=== PATIENT | female | born 1990 | race Asian ===

== ENCOUNTER 2016-10-14 05:50 | Inpatient (IN) | payer BC ==
[2016-10-14] MEDS ORDERED: LIDOCAINE 1% (PF) 10 MG/ML (30 ML SDV) SQ PRN (06:25)
[2016-10-14] MEDS ORDERED: METHYLERGONOVINE 0.2 MG/ML 1 ML AMP IM PRN (06:25)
[2016-10-14] MEDS ORDERED: CARBOPROST TROMETHAMINE 250 MCG/ML 1 ML AMP IM PRN (06:25)
[2016-10-14] MEDS ORDERED: OXYTOCIN 10 UNIT/ML 1 ML VIAL IM PRN (06:25)
[2016-10-14] MEDS ORDERED: TERBUTALINE 1 MG/ML VIAL SQ PRN (06:25)
[2016-10-14] MEDS ORDERED: PENICILLIN G POTASSIUM 5,000,000 UNIT in DEXTROSE 5% IN WATER 100 ML IV STA ×2 (06:29)
[2016-10-14 06:46] VITALS: BMI 34.9
[2016-10-14] MEDS: LACTATED RINGERS 1,000 ML IV SCH ×2 (06:47→07:11)
[2016-10-14 07:00] LABS: Anisocytosis Slight; Basophils % (A) 0 %; CH 28.5; CHCM 33.9; Eosinophils # (A) 0.1 k/uL (0-0.7); Eosinophils % (A) 1 %; HCT 36.8 % (34.0-46.0); HDW 2.48; HGB 11.9 gm/dL (11.4-16.0); Luc # (Auto) 0.26; Luc % (Auto) 2; Lymphocytes # (A) 1.9 k/uL (1.0-4.8); Lymphocytes % (A) 16 %; MCH 27.3 pg (25.0-35.0); MCHC 32.3 g/dL (31.0-37.0); MCV 84.4 fL (80.0-100.0); Mean Platelet Volume 6.7; Monocytes # (A) 0.5 k/uL (0-1.0); Monocytes % (A) 5 %; Neutrophils # (A) 8.8 k/uL (1.3-7.7); Neutrophils % (A) 76 %; RBC 4.36 m/uL (3.80-5.40); RDW 16.2 % (11.5-15.5); WBC 11.6 k/uL (3.8-10.6); WBC (Perox) 12.33
--- NOTE | 2016-10-14 07:40 | P.HPOB ---
History of Present Illness H&P Date: 10/14/16 Chief Complaint: Strong regular uterine contractions This is a 25-year-old white female 1 para 0 EDC 10/13/2016 at 40 and one sevenths weeks' gestation. Patient presents this morning with strong regular uterine contractions. Fetus is been active throughout the . She denies fluid leakage or vaginal bleeding. Past medical history is essentially negative. Current medications vitamins daily. ALLERGIES none known. Past surgical history hernia repair age 7. history: Group B strep cultures are positive. labs are not available this dictation, will be sent over shortly from the office, details to follow. On exam this is a pleasant young female, 5 foot 3 inches, 197 pounds, vital signs are stable including blood pressure 134/78, pulse 83, respirations 20, temperature 96.6. The general physical exam is within normal limits. The extremities reveal no edema. heart rate is in the 140s with decreased variability, no decelerations noted. Cervix is 4 cm dilated, 90% effaced, -2 station, vertex presentation, soft and anterior. Artificial amniorrhexis reveals clear fluid. Uterine contractions appear to be spontaneously occurring every 3-4 minutes apart. Impression: 40 and one sevenths week intrauterine , active spontaneous labor, positive group B strep cultures. Plan: Penicillin G per hospital protocol. Close maternal and surveillance. Analgesia options are reviewed with the patient and at this time she is requesting epidural, anesthesia staff aware. Anticipate normal spontaneous vaginal delivery. Review of Systems Negative except as in HPI. Past Medical History Past Medical History: No Reported History History of Any Multi-Drug Resistant Organisms: None Reported Past Surgical History: Hernia Repair Additional Past Surgical History / Comment(s): Hernia Surgery. [place] Tooth Extraction Past Anesthesia/Blood Transfusion Reactions: No Reported Reaction Past Psychological History: No Psychological Hx Reported Smoking Status: Never smoker Past Alcohol Use History: None Reported Past Drug Use History: None Reported - Past Family History Mother Family Medical History: Hypertension Medications and Allergies Home Medications Medication Instructions Recorded Confirmed Type Ferrous Sulfate [Feosol] 325 mg PO DAILY 10/14/16 10/14/16 History Pnv with Ca,No.72/Iron/FA 1 tab PO DAILY 10/14/16 10/14/16 History [ Plus Tablet] Allergies Allergy/AdvReac Type Severity Reaction Status Date / Time No Known Allergies Allergy Verified 10/14/16 06:00 Exam - Vital Signs Vital signs: Vital Signs Temp Pulse Resp BP 10/14/16 06:39 96.6 F L 83 20 134/78 Intake and Output 10/13/16 10/14/16 10/14/16 22:59 06:59 14:59 Other: Weight 89.358 kg Please see dictation under HPI. Results Result Diagrams: 10/14/16 06:45 Abnormal Lab Results - Last 24 Hours (Table) 10/14/16 Range/Units 06:45 WBC 11.6 H (3.8-10.6) k/uL RDW 16.2 H (11.5-15.5) % Neutrophils # 8.8 H (1.3-7.7) k/uL Assessment and Plan Plan: Close maternal and surveillance. Penicillin G per hospital protocol. Anticipate normal spontaneous vaginal delivery. Time with Patient: Less than 30
[2016-10-14] MEDS ORDERED: BUPIVACAINE (PF) 0.25% 30 ML VIAL ONE (07:52)
[2016-10-14] MEDS ORDERED: SODIUM CHLORIDE 0.9% 100 ML BAG ONE (07:52)
[2016-10-14] MEDS ORDERED: fentaNYL (PF) 50 MCG/ML 5 ML AMP ONE (07:52)
[2016-10-14] MEDS ORDERED: OXYTOCIN 30 UNITS/500 ML NS 30 UNIT in SALINE 1 500ML.BAG IV SCH ×2 (08:45→11:00)
[2016-10-14] MEDS ORDERED: BUPIVACAINE (PF) 0.25% 25 ML, fentaNYL (PF) 200 MCG in SODIUM CHLORIDE 0.9% 71 ML EPIDURAL ONE (09:20)
[2016-10-14] MEDS ORDERED: PENICILLIN G POTASSIUM 2,500,000 UNIT in DEXTROSE 5% IN WATER 100 ML IV SCH ×2 (10:30)
[2016-10-14] MEDS ORDERED: diphenhydrAMINE 50 MG/ML 1 ML VIAL IVP PRN ×2 (10:58)
[2016-10-14] MEDS ORDERED: LANOLIN CREAM 5 GM TUBE TOPICAL PRN (10:58)
[2016-10-14] MEDS ORDERED: ACETAMINOPHEN TAB 325 MG TAB PO PRN (10:58)
[2016-10-14] MEDS ORDERED: WITCH HAZEL 1 EACH MED..PAD TOPICAL PRN (10:58)
[2016-10-14] MEDS ORDERED: BENZOCAINE/MENTHOL SPRAY 1 GM/SPRAY AEROSOL TOPICAL PRN (10:58)
[2016-10-14] MEDS ORDERED: HYDROCORTISONE 2.5% RECTAL CREAM 30 GM TUBE RECTAL PRN (10:58)
[2016-10-14] MEDS ORDERED: ZOLPIDEM 5 MG TAB PO PRN (10:58)
[2016-10-14] MEDS ORDERED: diphenhydrAMINE 50 MG CAP PO PRN (10:58)
[2016-10-14] MEDS ORDERED: diphenhydrAMINE ELIXIR 25 MG/10 ML CUP PO PRN (10:58)
[2016-10-14] MEDS ORDERED: diphenhydrAMINE 25 MG CAP PO PRN (10:58)
[2016-10-14] MEDS ORDERED: SIMETHICONE 80 MG CHEWABLE PO PRN (10:58)
--- NOTE | 2016-10-14 10:58 | P.PROBDLV ---
Vaginal Delivery Note - . Vaginal Delivery Note: This is a 25-year-old female 1 para 0 EDC 10/13/2016 at 40 and one sevenths weeks' gestation. Patient presented this morning with strong regular uterine contractions, found to be in spontaneous active labor. is remarkable for positive group B strep cultures, blood type B positive, rubella status immune. Please see my dictated history and physical for details. On admission patient was 2-3 cm dilated, 80% effaced, vertex presentation, intact. Artificial amniorrhexis revealed clear fluid. Epidural was placed per her request. heart tones were reassuring throughout the first and second stages of labor. Oxytocin augmentation was given. Please note the penicillin G was given per hospital protocol as well, 1 dose given. Patient became completely dilated at 1013 hrs. and began the second stage of labor at that time. She pushed well in the second stage of labor. Perineal body was prepped and draped in usual sterile fashion. Infant's head delivered occiput anterior and she restituted accordingly. There was no nuchal cord noted. The left or anterior shoulder was gently and easily delivered from underneath the pubic symphysis at which time the oropharynx, nasopharynx and external nares were bulb suctioned on the perineal body. Patient was officially delivered of a liveborn female at 1034 hrs. Umbilical cord was doubly clamped and ligated, she was handed to waiting nurses for evaluation where scores of 9 and 9 at one and 5 minutes respectively were given. Placenta delivered spontaneously, it was inspected and noted to be intact with trivascular cord at 1036 hrs. At this time the perineal body was redraped. Inspection of the cervix, vagina, perineum and periurethral areas revealed a small left second-degree perineal laceration which was easily repaired in the usual fashion using 3-0 Vicryl suture. Fundus is firm and in the midline, symmetric and 18 week size upon completion of delivery. All sponge needle and enhancement counts are correct. Infant weighed 2920 g or 6 lbs. 7 oz. Estimated blood loss 300 mL's. Patient and her are allowed to begin the bonding experience in the LDR.
[2016-10-14] MEDS: IBUPROFEN 600 MG TAB PO PRN ×2 (13:38→23:24)
[2016-10-14] MEDS: SENNOSIDES-DOCUSATE SODIUM 1 EACH TAB PO SCH (19:33)
[2016-10-15] MEDS: Acetaminophen-Codeine 300-30mg TAB PO PRN ×2 (02:21→19:23)
[2016-10-15] MEDS: IBUPROFEN 600 MG TAB PO PRN ×2 (07:50→16:52)
[2016-10-15] MEDS: SENNOSIDES-DOCUSATE SODIUM 1 EACH TAB PO SCH ×2 (07:50→20:09)
--- NOTE | 2016-10-15 12:48 | P.PN ---
Subjective Principal diagnosis: day #1 Objective - Vital Signs Vital signs: Vital Signs Temp 97.8 F 10/15/16 08:00 Pulse 67 10/15/16 08:00 Resp 16 10/15/16 08:00 BP 126/61 10/15/16 08:00 Pulse Ox 99 10/14/16 23:23 Intake & Output 10/14/16 10/15/16 10/15/16 18:59 06:59 18:59 Intake Total 2.483 Output Total 2 Balance 2.483 -2 Intake: Intake, IV Titration 2.483 Amount Oxytocin 30 Units/500 ml 2.483 Ns 30 unit In Saline 1 500ml.bag @ 1 MILLIUNIT/ MIN 1 mls/hr IV .Q24H JULIO CESAR Rx#:[id number] Output: Urine 2 Other: # Voids 1 - Constitutional General appearance: Present: average body habitus, cooperative - EENT Eyes: Present: PERRLA ENT: Present: hearing grossly normal - Neck Neck: Present: normal ROM Thyroid: bilateral: normal size - Respiratory Respiratory: bilateral: CTA - Cardiovascular Rhythm: regular Heart sounds: normal: S1, S2 - Gastrointestinal General gastrointestinal: Present: normal bowel sounds - Integumentary Integumentary: Present: normal - Neurologic Neurologic: Present: CNII-XII intact - Musculoskeletal Musculoskeletal: Present: gait normal, strength equal bilaterally - Psychiatric Psychiatric: Present: A&O x's 3, appropriate affect, intact judgment & insight - Labs CBC & Chem 7: 10/14/16 06:45 Assessment and Plan Plan: Continue routine care. Anticipate discharge home tomorrow. Time with Patient: Less than 30
[2016-10-16] MEDS: SENNOSIDES-DOCUSATE SODIUM 1 EACH TAB PO SCH ×2 (00:02→07:53)
[2016-10-16] MEDS: IBUPROFEN 600 MG TAB PO PRN ×2 (04:20→14:58)
--- NOTE | 2016-10-16 08:07 | P.DS ---
Providers Date of admission: 10/14/16 06:21 Expected date of discharge: 10/16/16 Attending physician: Ina Cast Primary care physician: Ina Cast - Discharge Diagnosis(es) (1) Spontaneous onset of labor Current Visit: Yes Status: Acute (2) GBS (group B Streptococcus carrier), +RV culture, currently Current Visit: Yes Status: Acute (3) Perineal laceration with delivery, second degree Current Visit: Yes Status: Acute (4) Normal spontaneous vaginal delivery Current Visit: Yes Status: Acute Hospital Course: This is a 25-year-old 1 now para 1 woman who presented at 40 and one sevenths weeks gestation in spontaneous active labor. She is group B strep positive and following admission antibiotics were initiated per protocol. She underwent artificial rupture of membranes and received an epidural anesthetic. She received Pitocin augmentation. She went on to deliver a liveborn female infant over a second-degree perineal laceration with Apgars of 9 at 1 minute and 9 at 5 minutes. The patient's course was unremarkable. By day #2 she was ambulating and voiding without difficulty, breast- feeding successfully, her lochia was minimal. She was therefore discharged home with routine instructions for care and follow-up. Patient Condition at Discharge: Good Plan - Discharge Summary Discharge Medication List Ferrous Sulfate [Feosol] 325 mg PO DAILY 10/14/16 [History] Pnv with Ca,No.72/Iron/FA [ Plus Tablet] 1 tab PO DAILY 10/14/16 [ History] Follow up Appointment(s)/Referral(s): Ina Cast MD [Primary Care Provider] - 6 Weeks Activity/Diet/Wound Care/Special Instructions: Follow-up in the office in 6 weeks . Call with any concerning signs or symptoms including heavy vaginal bleeding, severe abdominal pain, fever greater than 101, swelling or redness of the lower extremities, foul vaginal discharge, or signs of depression. Nothing in the vagina for 6 weeks after delivery, specifically no intercourse. Discharge Disposition: HOME SELF-CARE
[2016-10-16 08:15] VITALS: BP 130/84; PULSE 79; RESP 16; TEMP 98.1
== END 2016-10-16 15:45 | disposition home or self-care (01) | DRG 775 ==
LOC: FBPOP 05:50 → 4FBP 06:21
PROVIDERS: ADMIT Obstetrics & Gynecology; ATTEND Obstetrics & Gynecology
PROC: 0KQM0ZZ Repair Perineum Muscle, Open Approach (ICD-10-PCS; principal; 2016-10-14)
PROC: 10E0XZZ Delivery of Products of Conception, External Approach (ICD-10-PCS; principal; 2016-10-14)
PROC: 10907ZC Drainage of Amniotic Fluid, Therapeutic from Products of Conception, Via Natural or Artificial Opening (ICD-10-PCS; principal; 2016-10-14)
DX: O70.1 Second degree perineal laceration during delivery (principal); Z37.0 Single live birth; O99.824 Streptococcus B carrier state complicating childbirth; Z3A.40 40 weeks gestation of pregnancy
CPT/HCPCS: 59025; 85025; 88307; 99213